=== PATIENT | female | born 1960 | race Caucasian/White ===

== ENCOUNTER 2017-08-25 13:22 | Emergency (ER) | payer MEDICARE, MEDICAID ==
[~2017-08-25] VITALS: Ht 160 cm; Wt 56.0 kg
[~2017-08-25 13:22] MED LIST: CITA20TA4 PO; LISI-515 PO; PRAV40TA2 PO
[2017-08-25 13:29] VITALS: BP 197/85; PULSE 72; RESP 17; TEMP 98
[2017-08-25] MEDS ORDERED: IBUPROFEN 800 MG TAB PO ONE (14:15)
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
[2017-08-25] MEDS ORDERED: IBUP1TAB7 PO ×2 (15:02→15:57)
[2017-08-25] MEDS ORDERED: TRAM50TA PO (15:02)
[2017-08-25] MEDS ORDERED: NORC5TAB PO (15:14)
[2017-08-25 15:42] VITALS: BP 173/82; PULSE 78
[2017-08-25 15:47] VITALS: RESP 20
[2017-08-25] MEDS ORDERED: ACETAMINOPHEN/HYDROcodone 325 MG/5 MG TAB PO ONE (16:00)
== END 2017-08-25 17:09 | disposition home or self-care (01) ==
LOC: NEPD 13:22
DX: S92.322A Displaced fracture of second metatarsal bone, left foot, initial encounter for closed fracture (principal); S92.332A Displaced fracture of third metatarsal bone, left foot, initial encounter for closed fracture; S92.342A Displaced fracture of fourth metatarsal bone, left foot, initial encounter for closed fracture; S40.812A Abrasion of left upper arm, initial encounter; I10 Essential (primary) hypertension; E78.00 Pure hypercholesterolemia, unspecified; F17.200 Nicotine dependence, unspecified, uncomplicated; Z87.09 Personal history of other diseases of the respiratory system; V17.0XXA Pedal cycle driver injured in collision with fixed or stationary object in nontraffic accident, initial encounter; Y93.55 Activity, bike riding
CPT/HCPCS: 29515; 73630; 99283; E0113